=== PATIENT | female | born 1955 | race Caucasian/White ===

== ENCOUNTER 2016-08-25 07:42 | Inpatient (IN) | payer OTHER ==
[~2016-08-25] VITALS: Ht 152.4 cm; Wt 48.7 kg
[2016-08-25 08:31] LABS: BASOPHIL % 0.2 % (0-2); PLATELET COUNT 290 x10^3mcL (130-400); RED CELL DISTRIBUTION WIDTH 12.6 % (11.5-14.5)
[2016-08-25 08:34] LABS: microscopic required? YES; urine erythrocyte 1+ (NEGATIVE)
[2016-08-25 08:38] LABS: CALCIUM 8.5 mg/dL (8.5-10.1); CARBON DIOXIDE 26.4 mmol/L (21-32); CHLORIDE SERUM 95 mmol/L (98-107); CREATININE SERUM 0.9 mg/dL (0.6-1.0); GFR1 > 60 mL/min; GLUCOSE SERUM 160 mg/dL (74-106); POTASSIUM SERUM 3.2 mmol/L (3.5-5.1); SODIUM SERUM 132 mmol/L (136-145)
[2016-08-25 08:42] LABS: ALBUMIN 3.7 g/dL (3.4-5.0); ALKALINE PHOSPHATASE 66 U/L (46-116); ALT/SGPT 26 U/L (14-59); AMYLASE 43 U/L (25-115); AST/SGOT 26 U/L (15-37); BILIRUBIN TOTAL 0.39 mg/dL (0.20-1.00); CHOLESTEROL 135 mg/dL (<200); HDL CHOLESTEROL 47 mg/dL (40-60); LIPASE 136 IU/L (73-393); TOTAL PROTEIN, SERUM 7.4 g/dL (6.4-8.2)
[2016-08-25] MEDS ORDERED: LEVOTHYROXINE0.05 M2 PO (09:54)
[2016-08-25] MEDS ORDERED: LOVASTATIN20 MG PO (09:55)
[2016-08-25] MEDS ORDERED: DYA PO (09:55)
[2016-08-25] MEDS ORDERED: NEU300 PO (09:55)
[2016-08-25] MEDS ORDERED: LANTUS SOLOS100 U/M1 SC (09:55)
[2016-08-25] MEDS ORDERED: ENALAPRIL MALEA10 MG PO (09:55)
[2016-08-25] MEDS ORDERED: NOVOLIN 70/3010 ML SC (09:57)
[2016-08-25 11:10] LABS: CHOLESTEROL/HDL RATIO 2.8
[2016-08-25 11:12] LABS: T3 TOTAL 0.97 ng/mL
[2016-08-25 11:18] LABS: FREE T4 1.43 ng/dL (0.76-1.46); FREE THYROXINE INDEX 3.5 ug/dL (1.4-4.5); T4(THYROXINE) 10.1 ug/dL (4.7-13.3)
[2016-08-25 13:09] VITALS: BP 121/60
[2016-08-25 13:13] VITALS: BP 121/60
[2016-08-25 17:16] VITALS: BP 140/63
[2016-08-25 18:25] VITALS: Ht 152.4 cm; Wt 48.7 kg
[2016-08-25 19:46] LABS: AMPHETAMINE QUAL UR NONE DETECTED (NEG <=1000)
[2016-08-25 20:22] VITALS: BP 125/59
[2016-08-26 06:14] VITALS: BP 122/54
[2016-08-26 06:55] LABS: BASOPHIL % 0.4 % (0-2); PLATELET COUNT 235 x10^3mcL (130-400); RED CELL DISTRIBUTION WIDTH 13.1 % (11.5-14.5)
[2016-08-26 07:01] LABS: CALCIUM 7.9 mg/dL (8.5-10.1); CARBON DIOXIDE 23.1 mmol/L (21-32); CHLORIDE SERUM 106 mmol/L (98-107); CREATININE SERUM 0.8 mg/dL (0.6-1.0); GFR1 > 60 mL/min; GLUCOSE SERUM 141 mg/dL (74-106); MAGNESIUM 1.8 mg/dL (1.8-2.4); PHOSPHOROUS 2.7 mg/dL (2.5-4.9); POTASSIUM SERUM 4.5 mmol/L (3.5-5.1); SODIUM SERUM 138 mmol/L (136-145)
[2016-08-26 10:00] VITALS: BP 133/58
[2016-08-26] MEDS ORDERED: MAC100 PO (13:12)
[2016-08-26] MEDS ORDERED: LAC PO (13:12)
[2016-08-26] MEDS ORDERED: ZOFRAN ODT4 MG SL (13:41)
[2016-08-26] MEDS ORDERED: NORCO1 TA1 SL ×3 (13:43→14:13)
[2016-08-26 14:10] VITALS: BP 132/62
== END 2016-08-26 15:34 | disposition home or self-care (01) ==
LOC: ED 07:42 → DU 09:44 → MU 08-26 11:08
PROVIDERS: Emergency Medicine; ADMIT Family Medicine
DX: K82.4 Cholesterolosis of gallbladder (principal); E87.1 Hypo-osmolality and hyponatremia; I10 Essential (primary) hypertension; K82.8 Other specified diseases of gallbladder; E11.9 Type 2 diabetes mellitus without complications; E78.00 Pure hypercholesterolemia, unspecified; K21.9 Gastro-esophageal reflux disease without esophagitis; M19.90 Unspecified osteoarthritis, unspecified site; E03.9 Hypothyroidism, unspecified; N39.0 Urinary tract infection, site not specified; E87.6 Hypokalemia; Z98.51 Tubal ligation status; Z88.0 Allergy status to penicillin; Z78.0 Asymptomatic menopausal state; Z88.1 Allergy status to other antibiotic agents; Z88.2 Allergy status to sulfonamides; Z88.8 Allergy status to other drugs, medicaments and biological substances; Z79.4 Long term (current) use of insulin
CPT/HCPCS: 82962; 83880; 84439; J0696; J1815; J1885; J3490; J7030; Q0092